=== PATIENT | female | born 1985 | race Caucasian/White ===

== ENCOUNTER 2020-01-24 14:42 | Emergency (ER) | payer BC ==
[2020-01-27 00:12] LABS: SARS-CoV-2 MS2 Positive; SARS-CoV-2 N Gene Negative; SARS-CoV-2 S Gene Negative; SARS-CoV-2 by NAA Not Detected (Not Detected); SARS-CoV-2 orf1ab Negative
== END 2020-01-24 16:20 | disposition short-term general hospital (02) ==
LOC: ERS 14:42
DX: B34.9 Viral infection, unspecified (principal); Z20.828 Contact with and (suspected) exposure to other viral communicable diseases; F32.9 Major depressive disorder, single episode, unspecified; F41.9 Anxiety disorder, unspecified; F90.9 Attention-deficit hyperactivity disorder, unspecified type; F17.290 Nicotine dependence, other tobacco product, uncomplicated; Z79.899 Other long term (current) drug therapy
CPT/HCPCS: 87635; 87804; 99283; U0003

== ENCOUNTER 2020-04-09 23:47 | Emergency (ER) | payer BC ==
--- NOTE | 2020-04-10 07:42 | RAD ---
EXAM: 3 views of the left shoulder HISTORY: Shoulder pain after fall COMPARISON: None FINDINGS: There is no evidence of acute fracture or dislocation. No degenerative changes are present. No soft tissue swelling is seen. The visualized thorax is unremarkable. IMPRESSION: No evidence of acute osseous abnormality.
--- NOTE | 2020-04-10 07:43 | RAD ---
EXAM: 4 views of the left elbow HISTORY: Elbow pain after fall on ice COMPARISON: None FINDINGS: No elbow effusion is seen. There is no evidence of acute fracture or dislocation. No signi ficant degenerative changes are seen. No soft tissue swelling is present. IMPRESSION: No evidence of acute osseous abnormality.
== END 2020-04-10 01:01 | disposition home or self-care (01) ==
LOC: ERS 23:47
DX: S43.102A Unspecified dislocation of left acromioclavicular joint, initial encounter (principal); F17.290 Nicotine dependence, other tobacco product, uncomplicated; W00.0XXA Fall on same level due to ice and snow, initial encounter

== ENCOUNTER 2020-05-16 13:23 | Emergency (ER) | payer BC ==
[2020-05-17 01:49] LABS: SARS-CoV-2 PCR by NAA Indeterminate (NotDetected)
== END 2020-05-16 14:00 | disposition home or self-care (01) ==
LOC: ERS 13:23
DX: H92.09 Otalgia, unspecified ear (principal); R05 Cough; Z20.822 Contact with and (suspected) exposure to COVID-19; F17.290 Nicotine dependence, other tobacco product, uncomplicated
CPT/HCPCS: 87635; 99283; U0003; U0005

== ENCOUNTER 2020-07-24 18:41 | Emergency (ER) | payer BC ==
[~2020-07-24 18:41] MED LIST: Iopamidol-370 76% 500 ML 1 ML ONE
[2020-07-24] MEDS ORDERED: Mag-Al 1200 mg/1200 mg/30 ML UDCUP ONE (19:22)
[2020-07-24] MEDS ORDERED: Lidocaine Viscous Sol 2% 15 ml UD Cup ONE (19:22)
[2020-07-24 19:41] LABS: #Basophils 0.1 thou/uL (0.0-0.2); #Eosinphils 0.3 thou/uL (0.0-0.7); #Lymphocytes 2.6 thou/uL (1.20-3.40); #Monocytes 0.4 thou/uL (0.11-0.59); #Neutrophils 3.6 thou/uL (1.40-6.50); %Basophils 1.4 % (0.0-1.0); %Eosinophils 4.6 % (0.0-10.0); %Monocytes 5.3 % (0.0-10.0); %Neutrophils 51.7 % (42.0-75.0); Hemoglobin 10.2 g/dL (12.0-16.0); Mean Corpuscular Hemoglobin 26.9 pg (27.0-31.0); Mean Corpuscular Volume 84.1 fL (78.0-98.0); Mean Platelet Volume 9.8 fL (7.4-10.4); Platelet Count 198 thou/uL (130-400); RBC Distribution Width 13.5 % (11.5-14.5); Red Blood Cell (RBC) Count 3.79 mill/uL (4.20-5.40); White Blood Cell (WBC) Count 6.9 thou/uL (4.8-10.8)
[2020-07-24 19:47] LABS: INR-International Normal Ratio 0.9; PTT 25.5 sec (22.9-36.1); Prothrombin Time 12.5 sec (12.0-14.7)
[2020-07-24 20:06] LABS: ALT (SGPT) 24 U/L (8-55); AST (SGOT) 29 U/L (5-34); Albumin 3.7 g/dL (3.5-5.0); Alkaline Phosphatase 51 U/L (40-110); Anion Gap 11 mmol/L (10-20); BUN (Urea Nitrogen) 10 mg/dL (7.0-18.7); Bilirubin, Total 0.3 mg/dL (0.2-1.2); CK (CPK) 180 U/L (29-168); Calc. Creatinine Clearance 0 mL/min (70-130); Calcium 9.3 mg/dL (7.8-10.44); Carbon Dioxide 24 mmol/L (22-29); Chloride 104 mmol/L (98-107); Globulin 3.4 g/dL (2.4-3.5); Glucose 81 mg/dL (70-105); Lipase 9 U/L (8-78); Potassium 3.4 mmol/L (3.5-5.1); Protein, Total 7.1 g/dL (6.0-8.3); Sodium 136 mmol/L (136-145)
[2020-07-24 20:16] LABS: Bilirubin Negative (Negative); Blood, Urine Negative (Negative); Clarity Clear (Clear); Glucose, Urine (Dipstick) Normal (Negative); Ketone, Urine Negative (Negative); Leukocyte 250 Leu/uL (Negative); Mucous/LPF Rare LPF (<2+); Nitrite Negative (Negative); Pregnancy Test - Urine (BHCG) Negative (Negative); Pregu Control Background? CLEAR/WHITE (CLR/WHITE); Pregu Control Bar Appear? YES (CONTROL BAR); Protein, Urine (Dipstick) Negative (Neg-Trace); RBC/HPF 0-3 HPF (0-3); Specific Gravity 1.023 (1.002-1.036); Specific Gravity, Urine 1.023 (1.002-1.036); Urobilinogen Normal mg/dL (Less than 2); pH, Urine 5.5 (5.0-9.0)
[2020-07-24 20:24] LABS: Bacteria/HPF Rare-Few HPF (None Seen)
[2020-07-24] MEDS ORDERED: diphenhydrAMINE 50 MG/ML VIAL ONE (22:15)
[2020-07-24] MEDS ORDERED: Haloperidol Lactate 5 MG/ML VIAL ONE (22:15)
== END 2020-07-25 00:50 | disposition home or self-care (01) ==
LOC: ERS 18:41
DX: K80.20 Calculus of gallbladder without cholecystitis without obstruction (principal); Z87.891 Personal history of nicotine dependence; Z79.899 Other long term (current) drug therapy
CPT/HCPCS: 36415; 74177; 80053; 81003; 81015; 81025; 82550; 83690; 85025; 85610; 85730; 87077; 87086; 96374; 96375; J1200; J1630; Q9967

== ENCOUNTER 2020-08-07 12:55 | Emergency (ER) | payer BC ==
[2020-08-07 13:54] LABS: #Basophils 0.1 thou/uL (0.0-0.2); #Eosinphils 0.3 thou/uL (0.0-0.7); #Lymphocytes 1.8 thou/uL (1.20-3.40); #Monocytes 0.4 thou/uL (0.11-0.59); #Neutrophils 3.2 thou/uL (1.40-6.50); %Basophils 2.1 % (0.0-1.0); %Eosinophils 5.2 % (0.0-10.0); %Monocytes 6.6 % (0.0-10.0); %Neutrophils 55.2 % (42.0-75.0); Hemoglobin 11.4 g/dL (12.0-16.0); Mean Corpuscular HGB CONC 32.7 g/dL (32.0-36.0); Mean Corpuscular Hemoglobin 27.3 pg (27.0-31.0); Mean Corpuscular Volume 83.3 fL (78.0-98.0); Mean Platelet Volume 10.2 fL (7.4-10.4); Platelet Count 177 thou/uL (130-400); RBC Distribution Width 13.6 % (11.5-14.5); Red Blood Cell (RBC) Count 4.17 mill/uL (4.20-5.40); White Blood Cell (WBC) Count 5.8 thou/uL (4.8-10.8)
[2020-08-07 14:15] LABS: Albumin 3.8 g/dL (3.5-5.0); Anion Gap 13 mmol/L (10-20); BUN (Urea Nitrogen) 11 mg/dL (7.0-18.7); Bilirubin, Total 0.3 mg/dL (0.2-1.2); Calc. Creatinine Clearance 0 mL/min (70-130); Calcium 8.9 mg/dL (7.8-10.44); Carbon Dioxide 19 mmol/L (22-29); Chloride 109 mmol/L (98-107); Glucose 95 mg/dL (70-105); Potassium 3.9 mmol/L (3.5-5.1); Protein, Total 7.7 g/dL (6.0-8.3); Sodium 137 mmol/L (136-145)
[2020-08-07 14:16] LABS: ALT (SGPT) 30 U/L (8-55); AST (SGOT) 34 U/L (5-34); Alkaline Phosphatase 52 U/L (40-110); Globulin 3.9 g/dL (2.4-3.5); Lipase 18 U/L (8-78)
[2020-08-07] MEDS ORDERED: Fentanyl 100 MCG/2 ML VIAL ONE (15:05)
[2020-08-07] MEDS ORDERED: Ondansetron PF 4 MG/2 ML Vial ONE (15:06)
[2020-08-07 15:23] LABS: Bacteria/HPF None Seen HPF (None Seen); Bilirubin Negative (Negative); Blood, Urine Negative (Negative); Clarity Clear (Clear); Glucose, Urine (Dipstick) Normal (Negative); Ketone, Urine Negative (Negative); Leukocyte 75 Leu/uL (Negative); Nitrite Negative (Negative); Protein, Urine (Dipstick) Negative (Neg-Trace); Specific Gravity, Urine 1.022 (1.002-1.036); Squamous Epithelial 0-3 HPF (0-3); Urobilinogen Normal mg/dL (Less than 2); pH, Urine 5.5 (5.0-9.0)
[2020-08-07 15:35] LABS: BHCG - Serum Negative (NEGATIVE); Pregs Control Background? CLEAR/WHITE (CLR/WHITE); Pregs Control Bar Appear? YES (CONTROL BAR)
== END 2020-08-07 18:26 | disposition home or self-care (01) ==
LOC: ERS 12:55
DX: K80.20 Calculus of gallbladder without cholecystitis without obstruction (principal); F17.290 Nicotine dependence, other tobacco product, uncomplicated
CPT/HCPCS: 36415; 76705; 80053; 81003; 81015; 83690; 84703; 85025; 96374; 96375; J2405; J3010

== ENCOUNTER 2022-01-21 21:58 | Emergency (ER) | payer BC, OTHER ==
[2022-01-21] MEDS ORDERED: Morphine 4 MG/ML VIAL ONE (23:10)
== END 2022-01-21 23:39 | disposition home or self-care (01) ==
LOC: ERS 21:58
DX: S52.124A Nondisplaced fracture of head of right radius, initial encounter for closed fracture (principal); F17.290 Nicotine dependence, other tobacco product, uncomplicated; W19.XXXA Unspecified fall, initial encounter
CPT/HCPCS: 29105; 96372; J2270

== ENCOUNTER 2022-04-28 19:45 | Emergency (ER) | payer BC, MEDICAID ==
[2022-04-28] MEDS ORDERED: Lidocaine 2% PF 5 ML VIAL ONE (20:04)
[2022-04-28] MEDS ORDERED: Boostrix 0.5 ML (Tdap) VIAL (>/=7 yrs of age) ONE (20:18)
[2022-04-28] MEDS ORDERED: Bacitracin 1 PK ONE (20:27)
== END 2022-04-28 20:43 | disposition home or self-care (01) ==
LOC: ERS 19:45
DX: S61.012A Laceration without foreign body of left thumb without damage to nail, initial encounter (principal); Z23 Encounter for immunization; W26.8XXA Contact with other sharp object(s), not elsewhere classified, initial encounter
CPT/HCPCS: 12031; 90471; 90715; J2001